=== PATIENT | male | born 1955 | race Caucasian/White ===

== ENCOUNTER 2022-06-10 12:06 | Inpatient (IN) ==
[2022-06-10] MEDS ORDERED: SODIUM CHLORIDE 0.9% 1000ML 500 ML IV ONE (12:37)
--- NOTE | 2022-06-10 12:40 | Emergency Department Note ---
Impression & Plan Precordial chest pain, Elevated troponin, Exertional chest pain ED Provider Note NAME: HUSSAIN YANG AGE: 66 SEX: M : 1955 ARRIVES VIA: Ambulance INFORMANT: [Patient] ED PROVIDER(S): [Simon Aguilar MD] CHIEF COMPLAINT: Chest pain HISTORY OF PRESENT ILLNESS: Patient is a 66-year-old male with a history of hypertension, diabetes and high cholesterol. He states that for the last year or so, he has noticed some chest tightness with exertion. 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 He was dizzy, short of breath, nauseated and sweaty. No pain radiation. The patient went to the [facility]. After about 30 to 45 minutes, with resting, his symptoms resolved. In route to the hospital, he was given 4 baby aspirin. Blood sugar as per EMS was 236. The patient has had resolution of all symptoms except for some persistent mild dizziness. Patient states this was the worst episode he has ever had. PMHx/PSHx: See Below SOCIAL HISTORY: See Below. PHYSICAL EXAM: GENERAL: Patient is in no acute distress. HEENT: No acute trauma, normocephalic atraumatic, mucous membranes moist, no nasal congestion. NECK: No stridor, no adenopathy, no meningismus, trachea is midline. LUNGS: Clear to auscultation bilaterally, no wheeze, no rhonchi, breath sounds equal. HEART: Without murmurs gallops or rubs, regular rate and rhythm. ABDOMEN: Soft, nontender, bowel sounds positive, no peritonitis. EXTREMITIES: No cyanosis or edema, full range of motion of all the joints without pain or difficulty, no signs for acute trauma. NEUROLOGIC: Oriented x 3, no acute motor or sensory deficits, no focal weakness. SKIN: No rash, no jaundice, no diaphoresis. DIFFERENTIAL DIAGNOSIS: Cardiac ischemia, angina, NV, anemia, electrolyte imbalance, anxiety, among others. EMERGENCY DEPARTMENT COURSE/PROCEDURES: Prior/Outside records reviewed: EMS notes, present notes. ECG per my interpretation: Indication was chest pain. The ECG shows a normal sinus rhythm with a rate of 99. There is no ST elevation, no PVCs. The QTc is 449. Continuous Cardiac Monitoring per my interpretation: An order was placed for continuous cardiac monitoring. The monitor shows a rate of 99 with normal sinus rhythm. MEDICAL DECISION MAKING: There is no leukocytosis or concerning anemia. There is a normal platelet count. No coagulopathy. Sodium was somewhat low at 131, no renal failure. No concerning liver enzyme elevation. Patient appeared to be in a euthyroid state. No evidence for pancreatitis by our testing. COVID test returned negative. Chest film per my review did not show mediastinal widening, pneumonia or pneumothorax. Cardiac enzyme testing x1 was slightly elevated, this troponin elevation could be from cardiac injury. ECG showed a normal sinus rhythm, no ischemia or dysrhythmia. The patient had received aspirin prior to arrival, no additional aspirin was given. He was given a 500 cc saline bolus during his stay. Patient presents with exertional chest pain. He does have cardiac risk factors. He has an elevated troponin. I do think further cardiac work-up and cardiac monitoring is warranted. Patient requires troponin trending. I spoke with the patient and the guards, the on-call hospitalist has been counseled. I did discuss things with case management. DISPOSITION: Patient's presentation and findings warrant a hospital stay. 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 Beliefs That Will Affect Care: None Current Living Situation: Other Current Living Situation Comment: [facility] Other Information That Helps Us Care for You: No Feels Safe at Home: Yes Safety Concerns: Feels Safe At This Time Allergies Allergies Allergy/AdvReac Type Severity Reaction Status Date / Time No Known Allergies Allergy Verified 06/10/22 13:59 Home Meds Home Medications Medication Instructions Recorded Confirmed aspirin 81 mg tablet,delayed 81 mg PO DAILY 06/10/22 06/10/22 release lisinopril 5 mg tablet 5 mg PO DAILY 06/10/22 06/10/22 metformin 1,000 mg tablet 1,000 mg PO BID 06/10/22 06/10/22 rosuvastatin 10 mg tablet 10 mg PO DAILY 06/10/22 06/10/22 Results & Data (ED) Vital Signs Vital Signs - 24 hr 06/10/22 12:17 06/10/22 12:17 06/10/22 12:17 Temperature 36.9 C 36.9 C Temperature Source Oral Oral Pulse Rate 100 H Pulse Rate from SpO2 Sensor Respiratory Rate 16 16 Respiratory Effort / Characteristics Non-Labored Spontaneous Non-Labored Spontaneous Respiratory Depth Normal Normal Blood Pressure 123/92 Blood Pressure Mean 102 Pulse Oximetry 97 97 97 Oxygen Delivery Method Room Air Room Air Room Air Oxygen Flow Rate 0 Sepsis Recent Fever Within 48 Hours No Sepsis New/Unexplained Change in Mental Status N/A Sepsis Action Taken by Nursing No Action Required 06/10/22 12:30 06/10/22 12:43 06/10/22 12:42 Temperature Temperature Source Pulse Rate 100 H 91 H 91 H Pulse Rate from SpO2 Sensor 92 H Respiratory Rate 16 13 Respiratory Effort / Characteristics Respiratory Depth Blood Pressure Blood Pressure Mean Pulse Oximetry 97 97 Oxygen Delivery Method Room Air Oxygen Flow Rate Sepsis Recent Fever Within 48 Hours Sepsis New/Unexplained Change in Mental Status Sepsis Action Taken by Nursing 06/10/22 13:00 06/10/22 13:00 06/10/22 13:30 Temperature Temperature Source Pulse Rate 88 Pulse Rate from SpO2 Sensor 88 Respiratory Rate 15 Respiratory Effort / Characteristics Respiratory Depth Blood Pressure 115/73 108/73 Blood Pressure Mean 87 84 Pulse Oximetry 93 Oxygen Delivery Method Oxygen Flow Rate Sepsis Recent Fever Within 48 Hours Sepsis New/Unexplained Change in Mental Status Sepsis Action Taken by Nursing 06/10/22 13:30 Temperature Temperature Source Pulse Rate 82 Pulse Rate from SpO2 Sensor 83 Respiratory Rate 12 Respiratory Effort / Characteristics Respiratory Depth Blood Pressure Blood Pressure Mean Pulse Oximetry 95 Oxygen Delivery Method Oxygen Flow Rate Sepsis Recent Fever Within 48 Hours Sepsis New/Unexplained Change in Mental Status Sepsis Action Taken by Alf Medications Current Medication List: was personally reviewed by me Laboratory Data Attestation: I reviewed the patient's lab results. 06/10/22 12:25 06/10/22 12:25 Lab Results 06/10/22 06/10/22 06/10/22 Range/Units 12:25 12:25 12:25 WBC 6.73 (4.8-10.8) K/ul RBC 4.09 L (4.70-6.10) M/uL Hgb 13.2 L (14.0-18.0) g/dl Hct 37.7 L (42.0-52.0) % MCV 92.2 (80.0-100.0) fL MCH 32.3 (25.0-34.0) pg MCHC 35.0 (32.0-36.0) g/dL RDW Std Deviation 42.4 (36.4-46.3) fL RDW Coeff of Harley 12.5 (11.5-14.5) % Plt Count 226 (130-400) K/uL MPV 10.1 (9.4-12.4) fL Immature Gran % (Auto) 0.6 % Neut % (Auto) 73.0 % Lymph % (Auto) 17.4 % Edgar % (Auto) 8.0 % Eos % (Auto) 0.6 % Baso % (Auto) 0.4 % Neut # (Auto) 4.91 (1.40-6.50) K/uL Lymph # (Auto) 1.17 L (1.2-3.4) K/uL Edgar # (Auto) 0.54 (0.11-0.59) K/uL Eos # (Auto) 0.04 (0-0.50) K/uL Baso # (Auto) 0.03 (0-0.2) K/uL Immature Gran # (Auto) 0.04 (0.01-0.20) K/uL PT 11.3 (9.0-12.0) Seconds INR 1.1 (0.9-1.1) APTT 27.6 (21.0-31.0) Seconds PTT Ratio 1.0 Sodium 131 L (136-145) mmol/L Potassium 4.2 (3.5-5.1) mmol/L Chloride 99 (98-107) mmol/L Carbon Dioxide 21 (21-32) mmol/L Anion Gap 11 (3-11) BUN 13 (6-23) mg/dl Creatinine 0.96 (0.6-1.4) mg/dl Est Cr Clr Drug Dosing Not Reportable Est GFR ( Amer) 93.8 ml/min Est GFR (Non-Af Amer) 80.9 ml/min BUN/Creatinine Ratio 13.5 (10-20) Glucose 219 H (70-99(Fasting)) mg/dl Calcium 9.3 (8.6-10.3) mg/dl Magnesium 1.9 (1.7-2.4) mg/dl Total Bilirubin 0.6 (0.2-1.0) mg/dl AST 27 (13-39) U/L ALT 36 (7-52) U/L Alkaline Phosphatase 46 (34-104) U/L Troponin I High Sens 32.5 H (0-20) pg/ml Total Protein 7.4 (6.0-8.3) gm/dl Albumin 4.6 (3.4-5.0) gm/dl Globulin 2.8 (2.5-4.0) gm/dl Albumin/Globulin Ratio 1.6 (0.9-2) Lipase 21 (11-82) U/L TSH (0.300-4.500) uIu/ml SARS-CoV-2, RNA, NAAT (NEGATIVE) 06/10/22 06/10/22 Range/Units 12:25 12:37 WBC (4.8-10.8) K/ul RBC (4.70-6.10) M/uL Hgb (14.0-18.0) g/dl Hct (42.0-52.0) % MCV (80.0-100.0) fL MCH (25.0-34.0) pg MCHC (32.0-36.0) g/dL RDW Std Deviation (36.4-46.3) fL RDW Coeff of Harley (11.5-14.5) % Plt Count (130-400) K/uL MPV (9.4-12.4) fL Immature Gran % (Auto) % Neut % (Auto) % Lymph % (Auto) % Edgar % (Auto) % Eos % (Auto) % Baso % (Auto) % Neut # (Auto) (1.40-6.50) K/uL Lymph # (Auto) (1.2-3.4) K/uL Edgar # (Auto) (0.11-0.59) K/uL Eos # (Auto) (0-0.50) K/uL Baso # (Auto) (0-0.2) K/uL Immature Gran # (Auto) (0.01-0.20) K/uL PT (9.0-12.0) Seconds INR (0.9-1.1) APTT (21.0-31.0) Seconds PTT Ratio Sodium (136-145) mmol/L Potassium (3.5-5.1) mmol/L Chloride (98-107) mmol/L Carbon Dioxide (21-32) mmol/L Anion Gap (3-11) BUN (6-23) mg/dl Creatinine (0.6-1.4) mg/dl Est Cr Clr Drug Dosing Est GFR ( Amer) ml/min Est GFR (Non-Af Amer) ml/min BUN/Creatinine Ratio (10-20) Glucose (70-99(Fasting)) mg/dl Calcium (8.6-10.3) mg/dl Magnesium (1.7-2.4) mg/dl Total Bilirubin (0.2-1.0) mg/dl AST (13-39) U/L ALT (7-52) U/L Alkaline Phosphatase (34-104) U/L Troponin I High Sens (0-20) pg/ml Total Protein (6.0-8.3) gm/dl Albumin (3.4-5.0) gm/dl Globulin (2.5-4.0) gm/dl Albumin/Globulin Ratio (0.9-2) Lipase (11-82) U/L TSH 2.524 (0.300-4.500) uIu/ml SARS-CoV-2, RNA, NAAT NEGATIVE (NEGATIVE) Administered Medications Enoxaparin Sodium (Enoxaparin Inj 40 Mg/0.4 Ml Syr) 40 mg SQ Q24H FRANCISCO Stop: 07/10/22 16:29 Last Admin: 06/10/22 17:06 Dose: 40 mg Documented By: STIVEN Insulin Aspart (Insulin Aspart Per Unit Charge) 0 units SC ACHS FRANCISCO Stop: 07/10/22 16:29 Last Admin: 06/10/22 17:04 Dose: 7 units Documented By: STIVEN Co-signed By: NEMO Discontinued Medications Sodium Chloride (Nss 1000ml) 500 mls @ 999 mls/hr IV .Q31M ONE Stop: 06/10/22 13:07 Last Infusion: 06/10/22 13:34 Dose: 0 mls/hr Documented By: Admin: 06/10/22 13:03 Dose: 999 mls/hr Documented By: TARAH Imaging Data Radiologist's Impression: Chest X-Ray 06/10/22 12:28 XR chest 1V portable CLINICAL HISTORY: Chest pain, nonspecific COMPARISON STUDY: No previous studies for comparison. FINDINGS: Lung volumes are normal. There is no consolidation to suggest pneumonia. Several small calcified granulomas within the left lung are present. There is no pneumothorax or pleural effusion. Cardiac size is normal. Mediastinal contours are normal. There is no evidence for pulmonary edema. IMPRESSION: No acute cardiopulmonary findings. ACT 112: Negative or not required by law. Electronically signed by: Julio Thakkar M.D. 06/10/2022 12:47 PM Discharge Plan Visit Data Chief Complaint: Chest Pain Stated Complaint: chest discomfort ED Provider: Simon Aguilar Discharge Problem: Precordial chest pain, Elevated troponin, Exertional chest pain Patient Disposition: Admitted As Inpatient Condition: Good Discharge Instructions Interventions: ED Discharge Assessment Last Done: 06/10/22 15:35
[2022-06-10 12:47] LABS: Basophils # (auto) 0.03 K/uL (0-0.2); Basophils % (auto) 0.4 %; Eosinophils # (auto) 0.04 K/uL (0-0.50); Eosinophils % (auto) 0.6 %; Hematocrit (blood only) 37.7 % (42.0-52.0); Hemoglobin 13.2 g/dl (14.0-18.0); Immature Granulocytes # (auto) 0.04 K/uL (0.01-0.20); Immature Granulocytes % (auto) 0.6 %; Lymphocytes # (auto) 1.17 K/uL (1.2-3.4); Lymphocytes % (auto) 17.4 %; Mean Corpuscular Hemoglobin 32.3 pg (25.0-34.0); Mean Corpuscular Volume 92.2 fL (80.0-100.0); Mean Platelet Volume 10.1 fL (9.4-12.4); Monocytes # (auto) 0.54 K/uL (0.11-0.59); Neutrophils # (auto) 4.91 K/uL (1.40-6.50); Platelet Count 226 K/uL (130-400); RDW Coefficient of Variation 12.5 % (11.5-14.5); RDW Standard Deviation 42.4 fL (36.4-46.3); Red Blood Count 4.09 M/uL (4.70-6.10); White Blood Count 6.73 K/ul (4.8-10.8)
--- NOTE | 2022-06-10 12:48 | XRay Report ---
XR chest 1V portable CLINICAL HISTORY: Chest pain, nonspecific COMPARISON STUDY: No previous studies for comparison. FINDINGS: Lung volumes are normal. There is no consolidation to suggest pneumonia. Several small calc ified granulomas within the left lung are present. There is no pneumothorax or pleural effusion. Card iac size is normal. Mediastinal contours are normal. There is no evidence for pulmonary edema. IMPRESSION: No acute cardiopulmonary findings. ACT 112: Negative or not required by law. Electronically signed by: Julio Thakkar M.D. 06/10/2022 12:47 PM
[2022-06-10 13:01] LABS: Alanine Aminotransferase 36 U/L (7-52); Albumin Globulin Ratio 1.6 (0.9-2); Albumin Level 4.6 gm/dl (3.4-5.0); Alkaline Phosphatase 46 U/L (34-104); Anion Gap 11 (3-11); Aspartate Aminotransferase 27 U/L (13-39); BUN Creatinine Ratio 13.5 (10-20); Bilirubin,Total 0.6 mg/dl (0.2-1.0); Blood Urea Nitrogen 13 mg/dl (6-23); Calcium 9.3 mg/dl (8.6-10.3); Carbon Dioxide 21 mmol/L (21-32); Chloride 99 mmol/L (98-107); Est GFR (African American) 93.8 ml/min; Est GFR (Non-African American) 80.9 ml/min; Globulin 2.8 gm/dl (2.5-4.0); Glucose 219 mg/dl (70-99(Fasting)); Lipase 21 U/L (11-82); Potassium 4.2 mmol/L (3.5-5.1); Sodium 131 mmol/L (136-145); Total Protein 7.4 gm/dl (6.0-8.3)
[2022-06-10 13:11] LABS: INR 1.1 (0.9-1.1); Partial Thromboplastin Time 27.6 Seconds (21.0-31.0); Prothrombin Time 11.3 Seconds (9.0-12.0)
[2022-06-10 13:20] LABS: Magnesium 1.9 mg/dl (1.7-2.4)
[2022-06-10 13:25] LABS: Troponin I High Sensitivity 32.5 pg/ml (0-20)
--- NOTE | 2022-06-10 14:42 | History & Physical Report ---
Date of Service June 10, 2022 Assessment & Plan (1) Atypical chest pain: Plan: 66 yo male with DMII, HTN, HLD presenting with atypical chest pain and SOB for ACS rule out. ACS not likely currently, though high risk, 2 prior episodes. Cardiology consult for stress testing/further evaluation. Currently asymptomatic, stable Trend Trops, AM labs Echo, daily EKG Daily ASA, prn nitro for chest pain Oxygen as needed Cardiology consult (2) DMII (diabetes mellitus, type 2): Plan: Hold home metformin, AM [id number] ISS Stable (3) HTN (hypertension): Plan: Continue lisinopril 5mg daily Stable (4) HLD (hyperlipidemia): Plan: Continue rosuvastatin 10mg Stable Full code Lovenox SQ Med/surg with tele Heart Healthy diet Dispo: anticipated discharge in 1-2 days with Cardiology recs. Denisse Quiroz MD [facility] Hospitalist History of Present Illness Chief Complaint: Chest Pain Primary Care Provider: VENUS English Pt is a 66 yo gentleman with PMHx of HTN, HLD and DMII presenting with an episode of chest pain with exertion. 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 Lasted approximately 45 minutes. States he was sent to the [facility] when this started where he became nauseous and clammy. Was then transferred here via ambulance and received 4 baby aspirins en route. Notes 2 prior episodes of this over the last year. Currently asymptomatic. States he smoked for 18 years in the past. Denies current chest pain, SOB, N/V, abdominal pain. ED workup showed EKG within normal limits and elevated high sensitivity troponin of 32.5. Na of 131, glucose of 219 and hgb of 13.2. Chest XRAY was normal. Pt was admitted for ACS rule-out. Allergies Allergy/AdvReac Type Severity Reaction Status Date / Time No Known Allergies Allergy Verified 06/10/22 13:59 Home Medications Medication Instructions Recorded Confirmed Type aspirin 81 mg tablet,delayed 81 mg PO DAILY 06/10/22 06/10/22 History release lisinopril 5 mg tablet 5 mg PO DAILY 06/10/22 06/10/22 History metformin 1,000 mg tablet 1,000 mg PO BID 06/10/22 06/10/22 History rosuvastatin 10 mg tablet 10 mg PO DAILY 06/10/22 06/10/22 History Past Med/Surg History Medical History (Updated 06/10/22 @ 14:56 by Denisse Quiroz MD) DMII (diabetes mellitus, type 2) HLD (hyperlipidemia) HTN (hypertension) Review of Systems Review of Systems: All systems reviewed & are unremarkable except as noted in HPI & below Physical Exam Constitutional: WD/WN, vitals as above Eyes: + anicteric sclerae Respiratory: normal respiratory effort, lungs clear to auscultation Cardiovascular: RRR, no murmur, no edema Extremities: no pedal edema and no edema Gastrointestinal (Abdomen): normal bowel sounds, soft, nontender, no hepatosplenomegaly Neurologic: Speech / Cognition: normal speech Motor/Sensory: normal movement Psychiatric: A+Ox3, euthymic affect Results & Data Results & Data Vital Signs (Past 12 Hours) Vital Signs Temp Pulse Resp BP Pulse Ox O2 Del Method O2 Flow Rate 06/10/22 13:30 82 12 95 06/10/22 13:30 108/73 06/10/22 13:00 88 15 93 06/10/22 13:00 115/73 06/10/22 12:42 91 H 13 97 06/10/22 12:43 91 H 06/10/22 12:30 100 H 16 97 Room Air 06/10/22 12:17 36.9 C 16 97 Room Air 06/10/22 12:17 97 Room Air 0 06/10/22 12:17 36.9 C 100 H 16 123/92 97 Room Air Code Status & VTE Plan VTE Prophylaxis Plan VTE Prophylaxis will be ordered: Yes
[2022-06-10] MEDS ORDERED: CARBOHYDRATES FOR HYPOGLYCEMIA PO PRN (15:58)
[2022-06-10] MEDS ORDERED: GLUCOSE 40% GEL 15 GM TUBE PO PRN (15:58)
[2022-06-10] MEDS ORDERED: POLYETHYLENE (MIRALAX) 17 GM PACK PO PRN (15:58)
[2022-06-10] MEDS ORDERED: ACETAMINOPHEN 325 MG TAB PO PRN (15:58)
[2022-06-10] MEDS ORDERED: MAGNESIUM HYDROXIDE SUSP 30 ML UDC PO PRN (15:58)
[2022-06-10] MEDS ORDERED: DEXTROSE 50% 50 ML SYRINGE IV PRN (15:58)
[2022-06-10] MEDS ORDERED: ALUMINUM/MAGNESIUM SUSP 30 ML UDC PO PRN (15:58)
[2022-06-10] MEDS ORDERED: NITROGLYCERIN SL 0.4 MG/TAB TAB SL PRN (15:58)
[2022-06-10] MEDS ORDERED: GLUCAGON FOR INJ 1 MG VIAL SQ PRN (15:58)
[2022-06-10] MEDS ORDERED: ONDANSETRON INJ 2 MG/ML 2 ML VIAL IV PRN (15:58)
[2022-06-10] MEDS ORDERED: GLUCOSE 10 TAB/TUBE PO PRN (15:58)
[2022-06-10] MEDS ORDERED: ENOXAPARIN INJ 40 MG/0.4 ML SYR SQ SCH (16:30)
--- NOTE | 2022-06-10 16:47 | Electrocardiogram Report ---
Test Reason : Blood Pressure : / mmHG Vent. Rate : 099 BPM Atrial Rate : 099 BPM P-R Int : 164 ms QRS Dur : 090 ms QT Int : 350 ms P-R-T Axes : 070 010 074 degrees QTc Int : 449 ms Normal sinus rhythm Normal ECG No previous ECGs available Confirmed by Eduardo David ([id number]) on 06/10/2022 4:46:46 PM Referred By: [facility] Confirmed By:Eduardo David
[2022-06-10] MEDS: INSULIN ASPART PER UNIT CHARGE SC SCH ×2 (17:04→21:47)
[2022-06-10] MEDS ORDERED: LANTUS PER UNIT CHARGE SQ SCH (21:00)
[2022-06-10] MEDS ORDERED: Heparin IV Adult Wt-Based Standard *NO* Bolus Protocol IV SCH (21:37)
--- NOTE | 2022-06-10 21:38 | Communication Note ---
Date of Service: June 10, 2022 Made aware by RN of troponin bump from 162.9 from 111.1 Patient asymptomatic as per RN. Normal ddimer AP NSTEMI PCU transfer continue aspirin, statin Rx Initiate beta-clary Initiate IV heparin Trend troponin TTE N.p.o. after midnight until patient seen by Cardiology in anticipation of ischemic work-up.
[2022-06-10] MEDS ORDERED: SODIUM CHLORIDE 0.9% 1000ML 1,000 ML IV ONE (21:39)
[2022-06-10] MEDS ORDERED: HEPARIN SODIUM/DEXTROSE 25,000 UNITS/500 ML BAG IV SCH (22:00)
[2022-06-10 22:13] LABS: D Dimer 410 ug/L FEU (0-500)
[2022-06-10] MEDS: METOPROLOL TARTRATE 25 MG TAB PO SCH (23:11)
[2022-06-11 04:41] LABS: Hematocrit (blood only) 35.4 % (42.0-52.0); Hemoglobin 12.1 g/dl (14.0-18.0); Mean Corpuscular Hemoglobin 32.3 pg (25.0-34.0); Mean Corpuscular Hgb Conc 34.2 g/dL (32.0-36.0); Mean Corpuscular Volume 94.4 fL (80.0-100.0); Mean Platelet Volume 9.8 fL (9.4-12.4); Platelet Count 203 K/uL (130-400); RDW Coefficient of Variation 12.9 % (11.5-14.5); RDW Standard Deviation 44.4 fL (36.4-46.3); Red Blood Count 3.75 M/uL (4.70-6.10); White Blood Count 5.57 K/ul (4.8-10.8)
[2022-06-11 04:59] LABS: BUN Creatinine Ratio 13.6 (10-20); Calcium 8.5 mg/dl (8.6-10.3); Chol HDL Ratio 3.4 (0-5); Creatinine Clr Calc Pharmacy 92.3 ml/min; Est GFR (African American) 102.3 ml/min; Est GFR (Non-African American) 88.3 ml/min; Potassium 4.2 mmol/L (3.5-5.1)
[2022-06-11 05:14] LABS: Troponin I High Sensitivity 94.2 pg/ml (0-20)
[2022-06-11 05:29] LABS: Partial Thromboplastin Ratio 2.3
[2022-06-11 05:35] LABS: Partial Thromboplastin Time 62.1 Seconds (21.0-31.0)
[2022-06-11 07:34] LABS: Estimated Average Glucose 189 mg/dl; Hemoglobin A1C 8.2 % (4.5-5.6)
--- NOTE | 2022-06-11 07:41 | Electrocardiogram Report ---
Test Reason : Blood Pressure : / mmHG Vent. Rate : 074 BPM Atrial Rate : 074 BPM P-R Int : 174 ms QRS Dur : 084 ms QT Int : 394 ms P-R-T Axes : 039 -01 019 degrees QTc Int : 437 ms Normal sinus rhythm Normal ECG When compared with ECG of 10-JUN-2022 12:17, No significant change Confirmed by Eduardo David ([id number]) on 06/11/2022 7:40:59 AM Referred By: [facility] Confirmed By:Eduardo David
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
[2022-06-11] MEDS ORDERED: ROSUVASTATIN CALCIUM 10 MG TAB PO SCH (09:00)
[2022-06-11] MEDS: INSULIN ASPART PER UNIT CHARGE SC SCH ×3 (09:19→20:31)
[2022-06-11] MEDS ORDERED: Nursing to Pharmacy Communication SCH ×2 (09:30→14:45)
[2022-06-11] MEDS: lisinopril 5 MG TAB PO SCH (09:49)
[2022-06-11] MEDS: ASPIRIN 81 MG ECTAB PO SCH (09:50)
[2022-06-11] MEDS: METOPROLOL TARTRATE 25 MG TAB PO SCH ×2 (09:50→20:43)
[2022-06-11] MEDS: LANTUS PER UNIT CHARGE SQ SCH (10:02)
--- NOTE | 2022-06-11 11:37 | Pre Anesthesia Assessment ---
Date of Service June 11, 2022 Pre Sedation Assessment Vital Signs Temp Pulse Pulse Resp BP BP Pulse Ox 06/11/22 08:10 36.6 C 72 18 119/80 94 06/11/22 03:04 36.8 C 99 H 20 112/76 98 06/10/22 23:00 70 06/11/22 00:46 06/11/22 00:10 36.6 C 67 16 121/73 95 06/10/22 23:51 37.0 C 76 18 107/73 95 06/10/22 23:23 78 06/10/22 20:03 36.7 C 78 18 107/75 96 06/10/22 16:05 06/10/22 16:05 16 06/10/22 15:58 96 06/10/22 15:58 06/10/22 16:02 80 06/10/22 15:56 71 06/10/22 15:55 36.6 C 16 146/84 H 97 06/10/22 13:30 82 12 95 06/10/22 13:30 108/73 06/10/22 13:00 88 15 93 06/10/22 13:00 115/73 06/10/22 12:42 91 H 13 97 06/10/22 12:43 91 H 06/10/22 12:30 100 H 16 97 06/10/22 12:17 36.9 C 16 97 06/10/22 12:17 97 06/10/22 12:17 36.9 C 100 H 16 123/92 97 Pulse Ox O2 Del Method O2 Flow Rate O2 Flow Rate 06/11/22 08:10 Room Air 06/11/22 03:04 Room Air 06/10/22 23:00 06/11/22 00:46 Room Air 06/11/22 00:10 Room Air 06/10/22 23:51 Room Air 06/10/22 23:23 06/10/22 20:03 Room Air 06/10/22 16:05 Room Air 06/10/22 16:05 06/10/22 15:58 Room Air 06/10/22 15:58 97 0 06/10/22 16:02 06/10/22 15:56 06/10/22 15:55 Room Air 06/10/22 13:30 06/10/22 13:30 06/10/22 13:00 06/10/22 13:00 06/10/22 12:42 06/10/22 12:43 06/10/22 12:30 Room Air 06/10/22 12:17 Room Air 06/10/22 12:17 Room Air 0 06/10/22 12:17 Room Air Pre-Sedation Airway Assessment Smoking Status: Former smoker Notes The planned sedation has been discussed with the patient. Informed Consent was obtained. I have identified the patient, determined the appropriateness of sedation and have assessed the patient immediately prior to the procedure. All medicine(s) and interventions are by my order.
[2022-06-11] MEDS ORDERED: HEPARIN (PORCINE) 1000 UNIT/ML 10 ML (CATH LAB USE ONLY) ONE (11:48)
[2022-06-11] MEDS ORDERED: niCARdipine HCL INJ 2.5 MG/ML 10 ML AMP ONE (11:48)
[2022-06-11] MEDS ORDERED: MIDAZOLAM HCL 1 MG/ML 2ML VIAL ONE (11:48)
[2022-06-11] MEDS ORDERED: fentaNYL citrate PF 100 MCG/2 ML VIAL ONE (11:48)
[2022-06-11] MEDS ORDERED: NITROGLYCERIN/D5W 100MCG/ML 20ML SYR ONE (11:49)
[2022-06-11] MEDS ORDERED: INSULIN ASPART PER UNIT CHARGE SC SCH (12:00)
--- NOTE | 2022-06-11 12:46 | Cardiac Catheterization ---
Date of Service June 11, 2022 Cardiac Cath Report Cardiac Cath Report Procedure: 1. Coronary angiography 2. Left heart catheterization 3. Left ventriculogram History: This is a 66-year-old diabetic male who presented with chest pain diaphoresis and shortness of breath. After arrival to the hospital his high-sensitivity troponins were elevated with a significant delta. No EKG changes. We decided the best option would be to proceed with cardiac catheterization. Procedure summary: The patient had a positive Barbeau and therefore right transfemoral approach was taken. After the patient was prepped and draped in usual manner. Utilizing a retrograde Salinger technique access was obtained from the right femoral artery. Preformed 5 Irish diagnostic catheters were utilized for the coronary angiograms. 5 Irish pigtail catheter was utilized for left heart pressures and LV gram. Following the procedure the minx device was utilized to close the arterial site. Patient was then returned to his room in stable condition. ACC data: Start time 12:16 PM End time 12:33 PM Opening aortic pressure 128/74 Closing aortic pressure 133/72 LV pressure 118/13 Sedation 1 mg intravenous Versed IV fluid 100 cc normal saline Contrast 70 cc Optiray Fluoroscopy time 3.5 minutes Radiation 845 mGy DAP 82.74 Rod per centimeter squared Right dominant system AUC score 9 Coronary angiography there is evidence of coronary calcification of both the left coronary as well as right coronary arteries. The left main trunk is widely patent. The left circumflex artery consists principally of a large marginal branch and then a second smaller marginal branch. The left circumflex artery celaya s luminal irregularities but is widely patent. The LAD extends to the apex of the heart. The LAD gives off a single first diagonal branch. The LAD system has luminal irregularities but is widely patent. There is a 20 to 30% ostial stenosis of the diagonal. The right coronary artery is dominant. The right coronary artery is diffusely diseased from its mid segment distally with at least a 50% stenoses throughout its course. Left ventriculogram: The left ventricle is of normal size with normal systolic function. The mitral valve is competent. The aortic root and ascending aorta have normal morphology. Summary: Calcified coronary arteries with nonobstructive disease of the left coronary system. The right coronary artery is diffusely diseased from its mid segment distally. The right coronary artery has the appearance of being small in caliber but this is due to diffuse disease. No discrete narrowing that would be amendable to a stent procedure. Recommendations: The patient should be treated medically for his coronary artery disease.
--- NOTE | 2022-06-11 12:47 | Post Anesthesia Assessment ---
Date of Service June 11, 2022 Post Sedation Assessment Vital Signs Temp Pulse Pulse Resp BP BP Pulse Ox 06/11/22 12:02 71 16 119/89 97 06/11/22 08:10 36.6 C 72 18 119/80 94 06/11/22 03:04 36.8 C 99 H 20 112/76 98 06/10/22 23:00 70 06/11/22 00:46 06/11/22 00:10 36.6 C 67 16 121/73 95 06/10/22 23:51 37.0 C 76 18 107/73 95 06/10/22 23:23 78 06/10/22 20:03 36.7 C 78 18 107/75 96 06/10/22 16:05 06/10/22 16:05 16 06/10/22 15:58 96 06/10/22 15:58 06/10/22 16:02 80 06/10/22 15:56 71 06/10/22 15:55 36.6 C 16 146/84 H 97 06/10/22 13:30 82 12 95 06/10/22 13:30 108/73 06/10/22 13:00 88 15 93 06/10/22 13:00 115/73 Pulse Ox O2 Del Method O2 Flow Rate 06/11/22 12:02 Room Air 06/11/22 08:10 Room Air 06/11/22 03:04 Room Air 06/10/22 23:00 06/11/22 00:46 Room Air 06/11/22 00:10 Room Air 06/10/22 23:51 Room Air 06/10/22 23:23 06/10/22 20:03 Room Air 06/10/22 16:05 Room Air 06/10/22 16:05 06/10/22 15:58 Room Air 06/10/22 15:58 97 0 06/10/22 16:02 06/10/22 15:56 06/10/22 15:55 Room Air 06/10/22 13:30 06/10/22 13:30 06/10/22 13:00 06/10/22 13:00 Discharge Sedation Level of Care: Phase I Post Sedation Plan On clinical assessment, the patient appears to have tolerated the sedation without complications. Patient is recovering as anticipated. Patient will continue to be monitored by nursing and may be discharged when sedation discharge criteria are met per below protocol. Upon Completions of procedure up to 15 minutes continue every 5 minute vital signs and the P.A.R. score; then discharge to a Phase I or Fast Track to Phase II per the following guidelines: * Discharge Patient to appropriate Phase II area if PAR is 8 or greater or re turn to pre- procedure baseline. The post - procedure orders will be as directed. * If PAR score is less than 8 or not return to pre-procedure baseline then patient will follow Phase I monitoring till PAR is reached for Phase II. The Phase I may be done in procedure room or may call to secure a Phase I area. * If naloxone or flumazenil are used for reversal, hold in Phase I for continued monitoring from when last reversal dose was given for a minimum of 60 minutes or longer pending the nurse and/or physician discretion of patient condition before discharge to Phase II. Please call the Sedation Physician to re-evaluate and complete post-note for discharge to Phase II area. Do NOT discharge from procedure sedation or Phase 1 until post- sedation evaluation note is complete by procedure /sedation MD Sedation Discharge Instructions to be given to the patient at discharge to home.
--- NOTE | 2022-06-11 15:35 | Hospitalist Progress Note ---
Date of Service June 11, 2022 Assessment & Plan (1) Atypical chest pain: Plan: 66 yo male with DMII, HTN, HLD presenting with atypical chest pain and SOB for ACS rule out. ACS not likely currently, though high risk, 2 prior episodes. Cardiology consulted for stress testing/further evaluation, for cath today. Currently asymptomatic, stable. Trops elevated but flat trended. Appreciate cardio recs. c/w telemetry. (2) DMII (diabetes mellitus, type 2): Plan: Hold home metformin ISS Stable (3) HTN (hypertension): Plan: Continue lisinopril 5mg daily Stable (4) HLD (hyperlipidemia): Plan: Continue rosuvastatin 10mg Stable Full code: on hep drip. Med/surg with tele Heart Healthy diet Dispo: anticipated discharge in 1-2 days with Cardiology recs. Admission and Anticipated Discharge Date Admission Date: June 10, 2022 Subjective Pt seen and examined at bedside as a follow up of atypical chest pain. Pt lying in bed, nad, on RA, denies further chest pressure while in hospital, denies any fever/headache/dizziness/sob/belly pain or other ROS. Physical Exam Physical Exam: GENERAL: Alert and oriented x3. NAD, on RA. HEENT: No pallor, no icterus. Pupils equal, round and reactive to light. Oral mucosa moist. NECK: No JVD, no neck masses. HEART: S1 and S2 heard. Regular rate and rhythm. No murmur, no gallop. RESPIRATORY SYSTEM: Normal AP diameter. No accessory muscle use. No wheezing, no crackles. ABDOMEN: Soft, bowel sounds present, nontender, no distention. CENTRAL NERVOUS SYSTEM: No facial droop. Speech is clear. Obeys simple commands. Moves extremities. EXTREMITIES: No edema, no erythema seen. Results & Data Results & Data Vital Signs (Past 12 Hours) Vital Signs Temp Pulse Resp BP Pulse Ox O2 Del Method 06/11/22 12:02 71 16 119/89 97 Room Air 06/11/22 08:10 36.6 C 72 18 119/80 94 Room Air
[2022-06-11] MEDS ORDERED: LIDOCAINE 1% LOCAL 20 ML VIAL ONE (16:24)
[2022-06-12 07:20] LABS: Hematocrit (blood only) 39.3 % (42.0-52.0); Hemoglobin 13.5 g/dl (14.0-18.0); Mean Corpuscular Hemoglobin 31.9 pg (25.0-34.0); Mean Corpuscular Hgb Conc 34.4 g/dL (32.0-36.0); Mean Corpuscular Volume 92.9 fL (80.0-100.0); Mean Platelet Volume 9.6 fL (9.4-12.4); Platelet Count 215 K/uL (130-400); RDW Coefficient of Variation 12.7 % (11.5-14.5); RDW Standard Deviation 43.4 fL (36.4-46.3); Red Blood Count 4.23 M/uL (4.70-6.10); White Blood Count 5.37 K/ul (4.8-10.8)
[2022-06-12 07:39] LABS: BUN Creatinine Ratio 13.1 (10-20); Creatinine Clr Calc Pharmacy 95.6 ml/min; Est GFR (African American) 104.3 ml/min; Phosphorus 3.5 mg/dl (2.5-4.9); Potassium 4.2 mmol/L (3.5-5.1)
[2022-06-12 07:45] LABS: Partial Thromboplastin Time 27.8 Seconds (21.0-31.0)
[2022-06-12] MEDS: INSULIN ASPART PER UNIT CHARGE SC SCH ×2 (08:20→12:08)
[2022-06-12] MEDS: LANTUS PER UNIT CHARGE SQ SCH (08:20)
[2022-06-12] MEDS: METOPROLOL TARTRATE 25 MG TAB PO SCH (08:37)
[2022-06-12] MEDS ORDERED: ROSUVASTATIN CALCIUM 20 MG TAB PO SCH (09:00)
[2022-06-12] MEDS: ASPIRIN 81 MG ECTAB PO SCH (10:42)
[2022-06-12] MEDS: lisinopril 5 MG TAB PO SCH (10:42)
--- NOTE | 2022-06-12 13:47 | Discharge Summary ---
Date of Service June 12, 2022 Admission HPI Per Admitting Provider Pt is a 66 yo gentleman with PMHx of HTN, HLD and DMII presenting with an episode of chest pain with exertion. 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 Lasted approximately 45 minutes. [facility] this started where he became nauseous and clammy. Was then transferred here via ambulance and received 4 baby aspirins en route. Notes 2 prior episodes of this over the last year. Currently asymptomatic. States he smoked for 18 years in the past. Denies current chest pain, SOB, N/V, abdominal pain. ED workup showed EKG within normal limits and elevated high sensitivity troponin of 32.5. Na of 131, glucose of 219 and hgb of 13.2. Chest XRAY was normal. Pt was admitted for ACS rule-out. Admission Exam Per Admitting Provider Constitutional: WD/WN, vitals as above Eyes: + anicteric sclerae Respiratory: normal respiratory effort, lungs clear to auscultation Cardiovascular:J RRR, no murmur, no edema Extremities: no pedal edema and no edema Gastrointestinal (Abdomen): normal bowel sounds, soft, nontender, no hepatosplenomegaly Neurologic: Speech / Cognition: normal speech Motor/Sensory: normal movement Psychiatric: A+Ox3, euthymic affect Principal Diagnosis NSTEMI Discharge Exam GENERAL: Alert and oriented x3. NAD, on RA. HEENT:NC. EOMI. Pupils equal, round and reactive to light. Oral mucosa moist. NECK: No JVD, no neck masses. CARDIAC: S1 and S2 heard. Regular rate and rhythm. No murmur, no gallop. RESPIRATORY: Normal AP diameter. No accessory muscle use. No wheezing, no crackles. ABDOMEN: Soft, bowel sounds present, nontender, no distention. NEURO: No facial droop. Speech is clear. Obeys simple commands. Moves extremities. EXTREMITIES: No edema, no erythema seen. Discharge Data Allergies Allergy/AdvReac Type Severity Reaction Status Date / Time No Known Allergies Allergy Verified 06/10/22 13:59 Consultations 06/10/22 13:41 ED Decision to Admit Stat 06/10/22 15:58 Consult Cardiology Routine Procedures Performed Operation Date: 06/11/22 11:30 Actual Procedures p Cath, Left with Cors and Vent - DO michael Maxwell Cineradiography w/Routine Exam - DO michael Maxwell Placement Art Occlusive Device - Aaron Herndon DO Ordered Studies 06/11/22 11:47 CL Cath Imgs for PACS use only Routine Hospital Course (1) Atypical chest pain: NSTEMI 66 yo male with DMII, HTN, HLD presenting with atypical chest pain and SOB for ACS rule out. Troponin elevated Cardiology consulted for stress testing/further evaluation. Underwent cardiac cath yesterday (06/11/2022) Summary: Calcified coronary arteries with nonobstructive disease of the left coronary system. The right coronary artery is diffusely diseased from its mid segment distally. The right coronary artery has the appearance of being small in caliber but this is due to diffuse disease. No discrete narrowing that would be amendable to a stent procedure. Recommendations: The patient should be treated medically for his coronary artery disease. Continue aspirin and lisinopril Patient was started on metoprolol tartrate 12.5 mg twice a day. Rosuvastatin was increased to 20 mg daily (2) DMII (diabetes mellitus, type 2): Current A1c 8.2% Hold home metformin while inpt ISS while inpt Follow up as outpt (3) HTN (hypertension): Continue lisinopril 5mg daily (4) HLD (hyperlipidemia): rosuvastatin increased to 20mg daily Total Time Total Time Spent Total Time Spent (In Minutes): 40 Discharge Plan Discharge Items Patient Disposition: Transfer [facility] Reason For Visit: CHEST PAIN Discharge Diagnosis: NSTEMI Condition on Discharge: Good Activity: Per Instructions section Non-emergency contact: Primary Care Provider Call non-emergency contact if: you have any medication questions and your symptoms worsen Follow-up/Referrals: [facility] DONOVAN [Primary Care Provider] - Diet: Carb Consistent or DM2 and Heart Healthy Addtl Attending Provider Instructions: Take aspirin, and lisinopril as previously. You were started on medication, metoprolol tartrate 12.5 mg twice a day. Your rosuvastatin medication was increased to 20 mg daily. ACTIVITY RECOMMENDATIONS: It is common to feel weak and fatigue for a few days. * Do not drive or operate any motorized equipment for the next three days. * Limit stair usage (2 or 3 trips a day only) for the next three days. * Do not lift anything heavier than 10 pounds for the next three days. * Do not engage in vigorous exercise or any sports for the next five days. * You may shower the day after your procedure, but do not immerse the area for three days. Cleanse the site gently with soap and water. SPECIAL CARE INSTRUCTIONS: * You may replace the pressure dressing or band-aid the morning after the procedure. * After your procedure, it is normal to have a small bruise or small lump at the site. Examine your site daily for any change in the bruise or lump, redness, swelling, drainage or numbness. Notify your doctor if any change. BLEEDING: * If there is a small amount of bleeding at the site, lie down and apply firm pressure with a clean cloth for ten minutes. When the bleeding stops, lie quietly keeping the procedure limb straight for six hours. Notify your doctor as soon as possible. * If the bleeding does not stop after ten minutes or if there is a large amount of bleeding or spurting, call 911 immediately. Continue to lie down and hold firm pressure until help arrives. SKIN IRRITATION: * You may experience some redness and/or swelling in the area where radiation was administered. If any skin irritation occurs, please contact your family physician. FOLLOW UP VISIT: Keep any scheduled doctor appointments. Pending Studies at Discharge: No Stand-Alone Forms: My [facility] Medications and DC Order Prescriptions: New rosuvastatin [Crestor] 20 mg Tablet 20 mg PO DAILY Qty: 30 0RF metoprolol tartrate 25 mg Tablet 12.5 mg PO BID Qty: 30 0RF Continued lisinopril 5 mg Tablet 5 mg PO DAILY metformin 1,000 mg Tablet 1,000 mg PO BID aspirin [Aspir-81] 81 mg Tablet,Delayed Release (Dr/Ec) 81 mg PO DAILY Discontinued rosuvastatin 10 mg Tablet 10 mg PO DAILY Discharge Orders: Discharge Order (Routine); Ordered 06/12/22 Ordered By: Ron Salazar/Other Patient Handouts: Managing Type 2 Diabetes Admission Data Admit Date/Time: 06/10/22 14:16 Attending Provider: Ron Sevilla Admit Provider: Denisse Quiroz Primary Care Provider: Am[facility] DONOVAN Other Providers: Denisse Quiroz ; Aaron Herndon ; Janet Dalton
== END 2022-06-12 15:54 | DRG 282 ==
LOC: ED 12:06 → SUATTDRO 14:16 → 2W 14:16 → 2S 22:35